=== PATIENT | female | born 1985 | race Caucasian/White ===

== ENCOUNTER 2017-01-22 16:18 | Emergency (ER) | payer OTHER ==
[2017-01-22 16:39] VITALS: BP 154/98
--- NOTE | 2017-01-22 16:47 | EDM.PDOC ---
ED HPI GENERAL MEDICAL PROBLEM - General Chief Complaint: Upper Extremity Injury/Pain Stated Complaint: RIGHT SHOULDER INJURY Time Seen by Provider: 01/22/17 16:21 Source of Information: Reports: Patient, Family, RN Notes Reviewed History Limitations: Reports: No Limitations - History of Present Illness INITIAL COMMENTS - FREE TEXT/NARRATIVE: 31-year-old female presents emergency department today complaint of right shoulder pain she injured herself while playing volleyball her loud pop and she is unsure if it's broken or dislocated she's never had a dislocated shoulder in the past, pain is controlled as long she does not move - Related Data Allergies Allergy/AdvReac Type Severity Reaction Status Date / Time Penicillins Allergy Hives Verified 01/22/17 16:34 Home Meds: Home Meds NK [No Known Home Meds] 01/22/17 [History] Past Medical History - Past Health History Medical/Surgical History: Denies Medical/Surgical History Social & Family History - Tobacco Use Smoking Status *Q: Never Smoker Review of Systems - Review of Systems Review Of Systems: See Below Constitutional: Reports: No Symptoms Musculoskeletal: Reports: Shoulder Pain Skin: Reports: No Symptoms ED EXAM, GENERAL - Physical Exam Exam: See Below Free Text/Narrative:: Examination upper extremity on the right side will not tolerate any any exam cannot appreciate a step-off radial pulse is +2 Course - Vital Signs Last Recorded V/S: Last Vital Signs Temp 97.2 F 01/22/17 16:39 Pulse 104 H 01/22/17 16:39 Resp 16 01/22/17 16:39 BP 154/98 H 01/22/17 16:39 Pulse Ox 95 01/22/17 16:39 - Orders/Labs/Meds Orders: Active Orders 24 hr Category Date Time Status Shoulder Comp Rt [CR] Stat Exams 01/22/17 16:41 Taken Meds: Medications Discontinued Medications Generic Name Dose Route Start Last Admin Trade Name Freq PRN Reason Stop Dose Admin Cyclobenzaprine HCl 10 mg 01/22/17 17:04 01/22/17 17:15 Flexeril PO 01/22/17 17:05 10 mg ONETIME ONE Administration Hydromorphone HCl 1 mg 01/22/17 17:04 01/22/17 17:15 Dilaudid IM 01/22/17 17:05 1 mg ONETIME ONE Administration Departure - Departure Time of Disposition: 17:43 Disposition: Home, Self-Care 01 Condition: Good Clinical Impression: Right shoulder injury Qualifiers: Encounter type: initial encounter Qualified Code(s): S49.91XA - Unspecified injury of right shoulder and upper arm, initial encounter - Discharge Information Forms: ED Department Discharge Additional Instructions: Use hydrocodone for pain control, Please followup with your primary care provider in 3-5 days if not better, please call return to the emergency department with worsening of symptoms. - My Orders Last 24 Hours: My Active Orders 01/22/17 16:41 Shoulder Comp Rt [CR] Stat - Assessment/Plan Last 24 Hours: My Active Orders 01/22/17 16:41 Shoulder Comp Rt [CR] Stat Plan: Assessment Acuity = acute Site and laterality = right shoulder sprain Etiology = secondary to trauma Manifestations = none Location of injury = Home Lab values = shoulder x-ray I don't appreciate any acute process, I did review films myself I cannot appreciate any acute process, the official read from radiology is pending Plan I did review x-ray films with her she had good relief with combination Dilaudid Flexeril she was able to have full range of her shoulder however did cause pain she is placed in a sling for comfort given 10 hydrocodone for pain control she will follow-up with her primary care provider upon return home to [facility] Patient was in agreement with the plan all questions were answered, they were instructed to return to the emergency department or call for worsening symptoms. This note was dictated using [employer] voice recognition software please call with any questions.
[2017-01-22] MEDS ORDERED: HYDROmorphone 1 MG/ML Syringe IM ONE (17:04)
[2017-01-22] MEDS ORDERED: Cyclobenzaprine 10 MG Tab PO ONE (17:04)
--- NOTE | 2017-01-24 08:32 | CR ---
Shoulder Comp Rt INDICATION: fall, pain COMPARISON: None FINDINGS: 3 views. No fracture, dislocation, or other acute bony abnormality. No joint space brice rowing. IMPRESSION: Negative study.
== END 2017-01-22 17:51 | disposition home or self-care (01) ==
LOC: JP.ED 16:18
DX: S49.91XA Unspecified injury of right shoulder and upper arm, initial encounter (principal); Z88.0 Allergy status to penicillin; X50.1XXA Overexertion from prolonged static or awkward postures, initial encounter; Y93.68 Activity, volleyball (beach) (court)
CPT/HCPCS: 73030; 96372; 99284; A9270; J1170